=== PATIENT | female | born 1945 | race Two or more races ===

== ENCOUNTER 2018-12-26 20:01 | Inpatient (IN) | payer MEDICARE, OTHER ==
[~2018-12-26] VITALS: Ht 165.1 cm; Wt 118.8 kg
[2018-12-26 20:00] VITALS: BP 126/62
[2018-12-26] MEDS ORDERED: AMLO10TA7 PO (20:24)
[2018-12-26] MEDS ORDERED: LISI10TA5 PO (20:24)
[2018-12-26] MEDS ORDERED: IBUP-1955 PO (20:24)
--- NOTE | 2018-12-26 20:30 | NUR ---
MEDICALLY CLEARED BY DR BLOCK
--- NOTE | 2018-12-26 20:33 | NUR ---
DR BLOCK SPOKE WITH TED FROM PET TEAM. OK TO ADMIT TO [facility]HU UNDER VOLUNTARY BASIS.
[2018-12-26 21:30] VITALS: BP 126/62
[2018-12-26] MEDS ORDERED: DIVA500T2 PO (22:01)
[2018-12-26] MEDS ORDERED: ZONI100C6 PO (22:01)
[2018-12-26] MEDS ORDERED: FLUO-120 PO (22:01)
[2018-12-26] MEDS ORDERED: MAG HYDROX/AL HYDROX/SIMETH 30 ML LIQUID UDC PO PRN (23:00)
[2018-12-26] MEDS ORDERED: LORAZEPAM 0.5 MG TABLET PO PRN (23:00)
[2018-12-26] MEDS ORDERED: MAGNESIUM HYDROXIDE 30 ML LIQUID UDC PO PRN (23:00)
[2018-12-26] MEDS: TEMAZEPAM 7.5 MG CAPSULE PO PRN (23:28)
[2018-12-26] MEDS ORDERED: IBUPROFEN 600 MG TABLET PO PRN (23:30)
--- NOTE | 2018-12-26 23:55 | NUR ---
AT APPROX 2105 ADMITTED 73 YEAR OLD FEMALE TO [facility] ON A VOLUNTARY HOLD FOR SI. UPON INTERVIEW, PATIENT STATED THAT AFTER SHE WAS EVICTED FORM HER HOME YESTERDAY FOR FAILURE TO PAY HER RENT; AFTER THAT SHE STARTED FEELING SUICIDAL WITH PLAN TO WALK INTO TRAFFIC BUT INSTEAD SHE CALLED HER DOCTOR, DOCTOR CARDENAS. DR CARDENAS TOLD HER TO CONTACT THE CRISIS TEAM AND AFTER THAT SHE WAS TAKEN TO [facility] ER IN [place] WHERE SHE WAS EVALUATED AND MEDICALLY CLEARED FOR ADMISSION TO A MENTAL HEALTH UNIT ON A VOLUNTARY HOLD FOR SI. THEN SHE WAS TRANSPORTED TO [facility]. UPON FACE TO FACE ASSESSMENT, PATIENT PRESENTS A/O X 4. SHE IS ABLE TO AMBULATE WITH STEADY GAIT AND ABLE TO VERBALIZED FEELINGS. SHE IS NOTED WITH BRIGHT AFFECT, CALM AND PLEASANT. SHE IS COOPERATIVE WITH ADMISSION PROCESS. SHE STATED THAT SHE IS STILL HAVING PASSIVE SUICIDAL IDEATION WITH A PLAN TO RUN INTO TRAFFIC; HOWEVER, SHE STATED THAT SHE DID NOT DO IT, SHE DID NOT WANT TO DO IT AND INSTEAD SHE CALLED HER DOCTOR. PATIENT IS ABLE TO CFS. SHE ALSO STATED, "I AM FEELING THIS WAY BECAUSE I HAVE BIPOLAR AND I STOP TAKING MY MEDICATION. ONCE I TAKE MY MEDICATIONS I WILL FEEL BETTER". SHE ALSO ADDED, "I WANT TO GET BETTER". SKIN ASSESSMENT DONE, PATIENT PRESENT WITH MULTIPLE TATTOES IN ALL EXTREMITIES. SHE IS ALSO MISSING HER RIGHT BIG TOE NAIL AND LEFT SECOND TOE NAIL. PATIENT IS UNDER THE CARE OF DR. NAVA. PATIENT WAS ADVISE OF UNIT RULES. SHE IS ON Q15 MIN CHECKS FOR FIRST 24 HRS. WILL CONTINUE TO MONITOR.
[2018-12-27] MEDS: PANTOPRAZOLE SODIUM 40 MG TABLET.DR PO SCH (06:43)
[2018-12-27 06:54] LABS: GLUCOSE FASTING 123 mg/dL (70-115); VALPROIC ACID 54 ug/mL (50-100)
[2018-12-27 07:30] VITALS: BP 112/55
[2018-12-27] MEDS: AMLODIPINE 10 MG TABLET PO SCH (08:16)
[2018-12-27] MEDS: LISINOPRIL 10 MG TABLET PO SCH (08:16)
[2018-12-27] MEDS ORDERED: DIVALPROEX 500 MG TABLET.DR PO SCH (09:00)
[2018-12-27] MEDS: DIVALPROEX 250 MG TABLET.DR PO SCH ×2 (15:37→16:00)
[2018-12-27 16:00] VITALS: BP 131/59
[2018-12-27] MEDS: BENZTROPINE MESYLATE 0.5 MG TABLET PO SCH (16:00)
[2018-12-27] MEDS ORDERED: IBUPROFEN 800 MG TABLET PO PRN (17:00)
[2018-12-27] MEDS: risperiDONE 1 MG/ML UDC PO SCH (20:20)
[2018-12-27] MEDS: ATORVASTATIN 10 MG TABLET PO SCH (20:20)
[2018-12-27] MEDS ORDERED: ZONISAMIDE 100 MG CAPSULE PO SCH (21:00)
[2018-12-27 21:05] VITALS: BP 122/55
[2018-12-27] MEDS: TEMAZEPAM 7.5 MG CAPSULE PO PRN (21:59)
[2018-12-28 06:43] LABS: BASOPHILS % (AUTO) 0.5 % (0.0-2.0); EOSINOPHILS # (AUTO) 0.2 K/uL (0.0-0.7); EOSINOPHILS % (AUTO) 2.6 % (0.0-7.0); HEMATOCRIT 41.4 % (31.2-41.9); HEMOGLOBIN 13.6 g/dL (10.9-14.3); LYMPHOCYTES # (AUTO) 1.2 K/uL (20.0-40.0); LYMPHOCYTES % (AUTO) 19.4 % (20.5-51.5); MEAN CORPUSCULAR HEMOGLOBIN 29.2 uug (24.7-32.8); MEAN CORPUSCULAR HGB CONC 33 g/dL (32.3-35.6); MEAN CORPUSCULAR VOLUME 88.9 fL (75.5-95.3); MONOCYTES # (AUTO) 0.6 K/uL (2.0-10.0); MONOCYTES % (AUTO) 9.4 % (0.0-11.0); NEUTROPHILS # (AUTO) 4.4 K/uL (1.8-8.9); NEUTROPHILS % (AUTO) 68.1 % (38.5-71.5); PLATELET COUNT (AUTO) 187 K/uL (179-408); RED BLOOD CELL COUNT(AUTO) 4.66 MIL/uL (3.63-4.92); WHITE BLOOD COUNT (AUTO) 6.4 K/uL (3.8-11.8)
[2018-12-28] MEDS: PANTOPRAZOLE SODIUM 40 MG TABLET.DR PO SCH (06:43)
[2018-12-28 07:06] LABS: ALANINE AMINOTRANSFERASE 64 U/L (14-59); ALKALINE PHOSPHATASE 82 U/L (50-136); ASPARTATE AMINOTRANSFERASE 34 U/L (15-37); BILIRUBIN,TOTAL 0.4 mg/dL (0.2-1.0); CARBON DIOXIDE 29 mmol/L (21-32); CHLORIDE 107 mmol/L (98-107); GLUCOSE 116 mg/dL (74-106); MAGNESIUM 2.8 mg/dL (1.8-2.4); POTASSIUM 4.1 mmol/L (3.5-5.1); TOTAL PROTEIN, SERUM 6.7 g/dL (6.4-8.2); UREA NITROGEN, BLOOD 14 mg/dL (7-18)
[2018-12-28 07:58] VITALS: BP 119/62
[2018-12-28] MEDS: risperiDONE 1 MG/ML UDC PO SCH ×2 (08:03→20:32)
[2018-12-28] MEDS: BENZTROPINE MESYLATE 0.5 MG TABLET PO SCH ×2 (08:03→17:21)
[2018-12-28] MEDS: GLIMEPIRIDE 2 MG TABLET PO SCH (08:04)
[2018-12-28] MEDS: DIVALPROEX 250 MG TABLET.DR PO SCH ×3 (08:04→17:21)
[2018-12-28] MEDS: AMLODIPINE 10 MG TABLET PO SCH (08:05)
[2018-12-28] MEDS: LISINOPRIL 10 MG TABLET PO SCH (08:05)
[2018-12-28 08:10] LABS: THYROID STIMULATING HORMONE 6.331 mIU/mL (0.358-3.740)
[2018-12-28 16:44] VITALS: BP 100/54
--- NOTE | 2018-12-28 19:20 | NUR ---
RECEIVED PT AWAKE, ALERT AND ORIENTEDX4. PT NO SIGNS OF SI. PLEASANT WHEN APPROACH. PT WITH NO COMPLAINT OF PAIN AND IN NO DISTRESS. SAFETY AND COMFORT PROVIDED. WILL CONTINUE TO MONITOR.
[2018-12-28 20:00] VITALS: BP 129/55
[2018-12-28] MEDS: ATORVASTATIN 10 MG TABLET PO SCH (20:31)
[2018-12-28] MEDS: ACETAMINOPHEN 325 MG TABLET PO PRN (20:49)
[2018-12-29] MEDS: TEMAZEPAM 7.5 MG CAPSULE PO PRN ×2 (00:47→22:30)
[2018-12-29] MEDS: PANTOPRAZOLE SODIUM 40 MG TABLET.DR PO SCH (06:09)
--- NOTE | 2018-12-29 06:23 | NUR ---
PT SLEPT 6 HOURS. PT GIVEN RESTORIL AT 0047 H.PT SHOWS NO SIGNS OF ACUTE DISTRESS. NO SIGNS OF SI. PRESCRIBED MEDICATION GIVEN AND PT TOLERATED IT WELL. SAFETY AND COMFORT PROVIDED. ALL NEEDS ARE MET. WILL ENDORSE ACCORDINGLY TO INCOMING NURSE FOR CONTINUITY OF CARE.
[2018-12-29 07:30] VITALS: BP 119/73
[2018-12-29] MEDS: DIVALPROEX 250 MG TABLET.DR PO SCH ×3 (08:49→17:42)
[2018-12-29] MEDS: BENZTROPINE MESYLATE 0.5 MG TABLET PO SCH ×2 (08:49→17:42)
[2018-12-29] MEDS: GLIMEPIRIDE 2 MG TABLET PO SCH (08:50)
[2018-12-29] MEDS: AMLODIPINE 10 MG TABLET PO SCH (08:50)
[2018-12-29] MEDS: LISINOPRIL 10 MG TABLET PO SCH (08:50)
[2018-12-29] MEDS: risperiDONE 1 MG/ML UDC PO SCH ×2 (08:53→20:47)
[2018-12-29 15:42] VITALS: BP 132/69
--- NOTE | 2018-12-29 16:38 | NUR ---
Initial Discharge Note: Patient is a 73 year old female who is currently homeless. Patient will likely need assistance securing placement. Finance Insurance Manager will continue to meet with patient and collaborate with patient and MD on a safe and proper discharge.
[2018-12-29] MEDS: IBUPROFEN 400 MG TABLET PO PRN (17:42)
[2018-12-29 20:12] VITALS: BP 106/56
[2018-12-29] MEDS: ATORVASTATIN 10 MG TABLET PO SCH (20:49)
[2018-12-30 06:55] LABS: BASOPHILS % (AUTO) 0.5 % (0.0-2.0); EOSINOPHILS # (AUTO) 0.2 K/uL (0.0-0.7); HEMATOCRIT 43.8 % (31.2-41.9); HEMOGLOBIN 14.1 g/dL (10.9-14.3); LYMPHOCYTES # (AUTO) 2.5 K/uL (20.0-40.0); LYMPHOCYTES % (AUTO) 29.3 % (20.5-51.5); MEAN CORPUSCULAR HEMOGLOBIN 28.7 uug (24.7-32.8); MEAN CORPUSCULAR HGB CONC 32 g/dL (32.3-35.6); MEAN CORPUSCULAR VOLUME 89.3 fL (75.5-95.3); MONOCYTES # (AUTO) 0.8 K/uL (2.0-10.0); MONOCYTES % (AUTO) 8.9 % (0.0-11.0); NEUTROPHILS % (AUTO) 59.3 % (38.5-71.5); PLATELET COUNT (AUTO) 228 K/uL (179-408); WHITE BLOOD COUNT (AUTO) 8.5 K/uL (3.8-11.8)
[2018-12-30] MEDS: PANTOPRAZOLE SODIUM 40 MG TABLET.DR PO SCH (07:07)
[2018-12-30] MEDS ORDERED: Z GUARD REMEDY PASTE 57 GM TUBE TOP PRN (07:15)
[2018-12-30 07:17] LABS: ALANINE AMINOTRANSFERASE 60 U/L (14-59); ALKALINE PHOSPHATASE 88 U/L (50-136); ASPARTATE AMINOTRANSFERASE 26 U/L (15-37); BILIRUBIN,TOTAL 0.5 mg/dL (0.2-1.0); CARBON DIOXIDE 27 mmol/L (21-32); CHLORIDE 108 mmol/L (98-107); CREATININE 0.9 mg/dL (0.6-1.3); GLUCOSE 107 mg/dL (74-106); POTASSIUM 4.5 mmol/L (3.5-5.1); UREA NITROGEN, BLOOD 23 mg/dL (7-18); VALPROIC ACID 43 ug/mL (50-100)
[2018-12-30] MEDS: IBUPROFEN 400 MG TABLET PO PRN ×2 (07:28→17:36)
[2018-12-30 07:30] VITALS: BP 122/73
[2018-12-30] MEDS: GLIMEPIRIDE 2 MG TABLET PO SCH (09:10)
[2018-12-30] MEDS: DIVALPROEX 250 MG TABLET.DR PO SCH ×4 (09:10→20:29)
[2018-12-30] MEDS: risperiDONE 1 MG/ML UDC PO SCH (09:11)
[2018-12-30] MEDS: LISINOPRIL 10 MG TABLET PO SCH (09:11)
[2018-12-30] MEDS: AMLODIPINE 10 MG TABLET PO SCH (09:11)
[2018-12-30] MEDS: BENZTROPINE MESYLATE 0.5 MG TABLET PO SCH ×2 (09:11→17:36)
[2018-12-30 15:07] VITALS: BP 98/52
[2018-12-30] MEDS: risperiDONE 1 MG TABLET PO SCH (20:29)
[2018-12-30] MEDS: ATORVASTATIN 10 MG TABLET PO SCH (20:29)
[2018-12-30 20:57] VITALS: BP 102/48
[2018-12-30] MEDS ORDERED: risperiDONE 0.25 MG TABLET PO SCH (21:00)
[2018-12-30] MEDS: TEMAZEPAM 7.5 MG CAPSULE PO PRN (21:50)
[2018-12-31] MEDS: PANTOPRAZOLE SODIUM 40 MG TABLET.DR PO SCH (06:01)
[2018-12-31 07:18] VITALS: BP 107/62
[2018-12-31] MEDS: AMLODIPINE 10 MG TABLET PO SCH (08:00)
[2018-12-31] MEDS: LISINOPRIL 10 MG TABLET PO SCH (08:00)
[2018-12-31] MEDS: IBUPROFEN 400 MG TABLET PO PRN ×2 (08:00→17:36)
[2018-12-31] MEDS: BENZTROPINE MESYLATE 0.5 MG TABLET PO SCH ×2 (08:01→17:36)
[2018-12-31] MEDS: DIVALPROEX 250 MG TABLET.DR PO SCH ×4 (08:01→20:14)
[2018-12-31] MEDS: GLIMEPIRIDE 2 MG TABLET PO SCH (08:01)
[2018-12-31] MEDS: risperiDONE 0.5 MG TABLET PO SCH (08:01)
[2018-12-31] MEDS ORDERED: risperiDONE 1 MG/ML UDC PO SCH (09:00)
--- NOTE | 2018-12-31 15:48 | NUR ---
Discharge Planning note: Curriculum And Instruction Director sent referral packet to [facility] at [facility] [[address] [place] [address] ] for possible discharge plan.
[2018-12-31 16:20] VITALS: BP 116/44
[2018-12-31] MEDS: POLYVINYL ALCOHOL OPHT DROPS 15 ML BOTTLE EACHEYE SCH (18:22)
[2018-12-31 19:58] VITALS: BP 125/73
[2018-12-31] MEDS: ATORVASTATIN 10 MG TABLET PO SCH (20:14)
[2018-12-31] MEDS: risperiDONE 1 MG TABLET PO SCH (20:14)
[2018-12-31] MEDS: TEMAZEPAM 7.5 MG CAPSULE PO PRN (22:05)
[2019-01-01] MEDS: PANTOPRAZOLE SODIUM 40 MG TABLET.DR PO SCH (06:01)
[2019-01-01 07:30] VITALS: BP 104/63
[2019-01-01] MEDS: AMLODIPINE 10 MG TABLET PO SCH (08:48)
[2019-01-01] MEDS: BENZTROPINE MESYLATE 0.5 MG TABLET PO SCH ×2 (08:48→16:20)
[2019-01-01] MEDS: DIVALPROEX 250 MG TABLET.DR PO SCH ×4 (08:48→20:38)
[2019-01-01] MEDS: POLYVINYL ALCOHOL OPHT DROPS 15 ML BOTTLE EACHEYE SCH ×2 (08:48→16:20)
[2019-01-01] MEDS: risperiDONE 0.5 MG TABLET PO SCH (08:49)
[2019-01-01] MEDS: GLIMEPIRIDE 2 MG TABLET PO SCH (08:49)
[2019-01-01] MEDS: LISINOPRIL 10 MG TABLET PO SCH (08:57)
[2019-01-01] MEDS: IBUPROFEN 400 MG TABLET PO PRN (15:09)
[2019-01-01 16:10] VITALS: BP 113/50
--- NOTE | 2019-01-01 19:20 | NUR ---
RECEIVED PT ON THE RECREATION ROOM WATCHING TELEVISION. PT SHOWS NO SIGNS OF ACUTE DISTRESS. PT HAVE NO S.I. SAFETY AND COMFORT PROVIDED. WILL CONTINUE TO MONITOR.
[2019-01-01 20:11] VITALS: BP 145/69
[2019-01-01] MEDS: risperiDONE 1 MG TABLET PO SCH (20:38)
[2019-01-01] MEDS: ATORVASTATIN 10 MG TABLET PO SCH (20:38)
[2019-01-01] MEDS: TEMAZEPAM 7.5 MG CAPSULE PO PRN (22:14)
[2019-01-02] MEDS: PANTOPRAZOLE SODIUM 40 MG TABLET.DR PO SCH (06:08)
--- NOTE | 2019-01-02 06:20 | NUR ---
PT SLEPT 6 HOURS. PT SHOWS NO SIGNS OF ACUTE DISTRESS. PT COOPERATIVE WITH CARE. RESTORIL GIVEN AT 2214. PT TOLERATED IT WELL. SAFETY AND COMFORT PROVIDED. ALL NEEDS ARE MET. WILL ENDORSE ACCORDINGLY TO INCOMING NURSE FOR CONTINUITY OF CARE.
[2019-01-02 07:30] VITALS: BP 117/68
[2019-01-02] MEDS: IBUPROFEN 400 MG TABLET PO PRN (07:47)
[2019-01-02] MEDS: AMLODIPINE 10 MG TABLET PO SCH (08:18)
[2019-01-02] MEDS: GLIMEPIRIDE 2 MG TABLET PO SCH (08:18)
[2019-01-02] MEDS: DIVALPROEX 250 MG TABLET.DR PO SCH ×4 (08:18→20:29)
[2019-01-02] MEDS: POLYVINYL ALCOHOL OPHT DROPS 15 ML BOTTLE EACHEYE SCH ×2 (08:19→16:35)
[2019-01-02] MEDS: risperiDONE 0.5 MG TABLET PO SCH (08:19)
[2019-01-02] MEDS: LISINOPRIL 10 MG TABLET PO SCH (08:19)
[2019-01-02] MEDS: BENZTROPINE MESYLATE 0.5 MG TABLET PO SCH ×2 (08:19→17:19)
[2019-01-02] MEDS: ACETAMINOPHEN 325 MG TABLET PO PRN (10:22)
[2019-01-02 16:00] VITALS: BP 107/54
--- NOTE | 2019-01-02 17:41 | NUR ---
Gps/Circulator- Encouraged using front wheel walker for safety. refused to eat at this time till pain on her shoulders subsided per pt. Addendum: 01/02/19 at 1804 by HEBERT WEIR LVN Error ,charted on a wrong patient
--- NOTE | 2019-01-02 18:05 | NUR ---
Error, charted on a wrong patient Addendum: 01/02/19 at 1805 by HEBERT WEIR LVN Error charted on a wrong patient
[2019-01-02 20:10] VITALS: BP 125/75
[2019-01-02] MEDS: ATORVASTATIN 10 MG TABLET PO SCH (20:29)
[2019-01-02] MEDS: risperiDONE 1 MG TABLET PO SCH (20:29)
[2019-01-02] MEDS: TEMAZEPAM 7.5 MG CAPSULE PO PRN (21:26)
[2019-01-03] MEDS: PANTOPRAZOLE SODIUM 40 MG TABLET.DR PO SCH (06:08)
[2019-01-03] MEDS: IBUPROFEN 400 MG TABLET PO PRN ×2 (06:25→16:21)
[2019-01-03 07:30] VITALS: BP 119/62
[2019-01-03] MEDS: POLYVINYL ALCOHOL OPHT DROPS 15 ML BOTTLE EACHEYE SCH ×2 (08:38→16:21)
[2019-01-03] MEDS: GLIMEPIRIDE 2 MG TABLET PO SCH (08:38)
[2019-01-03] MEDS: LISINOPRIL 10 MG TABLET PO SCH (08:38)
[2019-01-03] MEDS: BENZTROPINE MESYLATE 0.5 MG TABLET PO SCH ×2 (08:38→16:21)
[2019-01-03] MEDS: DIVALPROEX 250 MG TABLET.DR PO SCH ×4 (08:38→20:46)
[2019-01-03] MEDS: AMLODIPINE 10 MG TABLET PO SCH (08:40)
[2019-01-03] MEDS: risperiDONE 0.5 MG TABLET PO SCH (08:42)
--- NOTE | 2019-01-03 13:05 | NUR ---
Gps/Toe Laster- Pleasant affect, making her needs known to staff, claimed looking forward to be dc'd soon to [facility] per patient.
[2019-01-03 16:00] VITALS: BP 96/54
--- NOTE | 2019-01-03 19:32 | NUR ---
Received patient awake at TV room watching a movie and interacting with other patients appropriately. Pleasant upon approach, cooperative and compliant with medications. No complaints at the moment. Will continue to monitor.
[2019-01-03] MEDS: ATORVASTATIN 10 MG TABLET PO SCH (20:46)
[2019-01-03] MEDS: risperiDONE 1 MG TABLET PO SCH (20:47)
[2019-01-03 20:51] VITALS: BP 113/67
[2019-01-03] MEDS: TEMAZEPAM 7.5 MG CAPSULE PO PRN (21:54)
[2019-01-04] MEDS: IBUPROFEN 400 MG TABLET PO PRN ×2 (05:45→13:09)
[2019-01-04] MEDS: PANTOPRAZOLE SODIUM 40 MG TABLET.DR PO SCH (06:01)
[2019-01-04 07:30] VITALS: BP 114/41
[2019-01-04] MEDS: LISINOPRIL 10 MG TABLET PO SCH (08:36)
[2019-01-04] MEDS: BENZTROPINE MESYLATE 0.5 MG TABLET PO SCH ×2 (08:36→17:10)
[2019-01-04] MEDS: POLYVINYL ALCOHOL OPHT DROPS 15 ML BOTTLE EACHEYE SCH ×2 (08:36→17:10)
[2019-01-04] MEDS: AMLODIPINE 10 MG TABLET PO SCH (08:37)
[2019-01-04] MEDS: risperiDONE 0.5 MG TABLET PO SCH (08:37)
[2019-01-04] MEDS: GLIMEPIRIDE 2 MG TABLET PO SCH (08:39)
[2019-01-04] MEDS: DIVALPROEX 250 MG TABLET.DR PO SCH ×4 (09:38→20:23)
[2019-01-04 15:53] VITALS: BP 124/67
[2019-01-04] MEDS: ACETAMINOPHEN 325 MG TABLET PO PRN (17:10)
--- NOTE | 2019-01-04 17:30 | NUR ---
Gps/Science Specialist- Herrera Faustin DNP was called and informed patient > pain to her knees, orders received. Informed patient orders received, but pt. refused to receive [place](i do not want any narcotics".)
--- NOTE | 2019-01-04 18:45 | NUR ---
Gps/Home Care Administrator- Per patient she had hx of alcoholism and does not was to take any narcotic, also claimed she does not want to see P.T.,Needed to informed Herrera Faustin DNP, pt. refusing to be seen by P.T., and refused Rhoda , order not entered, pt. req.
--- NOTE | 2019-01-04 19:20 | NUR ---
RECEIVED PT ON HER ROOM. PT SHOWS NO ACUTE DISTRESS. PT COMPLAINING OF HER LEGS HURTING. TOLD HER THERE'S LIDOCAINE PATCH ORDERED FOR HER. PLEASANT WHEN APPROACHED. COOPERATIVE WITH CARE. SAFETY AND COMFORT PROVIDED. WILL CONTINUE TO MONITOR.
[2019-01-04] MEDS: risperiDONE 1 MG TABLET PO SCH (20:23)
[2019-01-04] MEDS: ATORVASTATIN 10 MG TABLET PO SCH (20:23)
[2019-01-04] MEDS: LIDOCAINE 5% PATCH TD SCH ×2 (20:25)
[2019-01-04 20:45] VITALS: BP 107/54
[2019-01-04] MEDS: TEMAZEPAM 7.5 MG CAPSULE PO PRN (23:24)
[2019-01-05] MEDS: PANTOPRAZOLE SODIUM 40 MG TABLET.DR PO SCH (06:01)
--- NOTE | 2019-01-05 06:27 | NUR ---
PT SLEPT 5 HOURS. PT SHOWS NO SIGNS OF ACUTE DISTRESS. PT GIVEN 2324H RESTORIL. PT TOLERATED IT WELL. SAFETY AND COMFORT PROVIDED. WILL ENDORSE ACCORDINGLY TO INCOMING NURSE FOR CONTINUITY OF CARE.
[2019-01-05 07:30] VITALS: BP 125/44
[2019-01-05] MEDS: risperiDONE 0.5 MG TABLET PO SCH (08:41)
[2019-01-05] MEDS: BENZTROPINE MESYLATE 0.5 MG TABLET PO SCH (08:41)
[2019-01-05] MEDS: GLIMEPIRIDE 2 MG TABLET PO SCH (08:41)
[2019-01-05] MEDS: LISINOPRIL 10 MG TABLET PO SCH (08:41)
[2019-01-05] MEDS: DIVALPROEX 250 MG TABLET.DR PO SCH ×2 (08:41→13:20)
[2019-01-05 08:42] VITALS: BP 125/44
[2019-01-05] MEDS: AMLODIPINE 10 MG TABLET PO SCH (08:42)
[2019-01-05] MEDS: POLYVINYL ALCOHOL OPHT DROPS 15 ML BOTTLE EACHEYE SCH (08:42)
[2019-01-05] MEDS: IBUPROFEN 400 MG TABLET PO PRN (08:42)
[2019-01-05] MEDS: LIDOCAINE 5% PATCH TD SCH ×2 (08:44→08:45)
--- NOTE | 2019-01-05 08:58 | NUR ---
DC NOTE: Patient will be discharged to [facility] [[address] [place] [address]; ]. Please arrange an ambulance for this patient at noon. Spoke to Omar, Manager Library [ ]. Per Omar, facility is ready to accept patient today. Patient is A&Ox4. Patient is currently denying suicidal and homicidal ideation. Patient is aware and agreeable with discharge plans. Patient will follow up at the facility with Dr. Santiago (production cloth cutter) and Dr. Gtz (psychiatrist). Patient refused offer to inform her contact listed on facesheet about patients discharge plan. Patient is homeless. Patient is able to plan for self-care. Patient has completed and signed the homeless patient waiver form. Patient was provided with the homeless mcc packet, which includes a list of emergency shelters, housing resources, drop in centers, and showers/hot meals centers. This also included the Homeless Information Hotline (833)-190-9219 or 211, [employer] (068)- 968-3727, and the [facility] (019)-057-2779. A copy of resource directory was signed by patient and added to patients chart. Patient was also provided with outpatient mental health resources to [facility] Crisis Line , [facility] , and the National Suicide Prevention Lifeline
--- NOTE | 2019-01-05 14:15 | NUR ---
GPS: Nursing Notes: Discharge Notes: Patient is awake and responding to her name, cooperative with nursing care, compliant with her medications, following staff directions, denies any SI/HI, denies any AH/VH, denies any pain or discomfort, denies any SOB, discharge to [facility] at [address] [place] [id number] , report given to Tiffany, nurse supervisor chlorine liquefaction, took all her belongings with her, transported to facility via ambulance. Patient will follow up at the facility with Dr. Santiago (first helper) and Dr. Gtz (psychiatrist). Patient refused offer to inform her contact listed on facesheet about patients discharge plan. Patient is homeless. Patient is able to plan for self-care. Patient has completed and signed the homeless patient waiver form. Patient was provided with the homeless half-way packet, which includes a list of emergency shelters, housing resources, drop in centers, and showers/hot meals centers. This also included the Homeless Information Hotline (291)-448-2112 or 211, [employer] (033)- 276-1248, and the [facility] (292)-612-9784. A copy of resource directory was signed by patient and added to patients chart. Patient was also provided with outpatient mental health resources to [facility] Crisis Line , [facility] , and the National Suicide Prevention Lifeline
== END 2019-01-05 16:00 | DRG 885 ==
LOC: ER 20:04 → GPS 20:42
PROVIDERS: ADMIT Psychiatry & Neurology Psychosomatic Medicine; ATTEND Internal Medicine
DX: F31.9 Bipolar disorder, unspecified (principal); N17.0 Acute kidney failure with tubular necrosis; Z68.41 Body mass index [BMI] 40.0-44.9, adult; E44.0 Moderate protein-calorie malnutrition; D68.59 Other primary thrombophilia; F41.9 Anxiety disorder, unspecified; Z59.0 Homelessness; F43.12 Post-traumatic stress disorder, chronic; X58.XXXS Exposure to other specified factors, sequela; L60.3 Nail dystrophy; L60.8 Other nail disorders; Z96.643 Presence of artificial hip joint, bilateral; E66.01 Morbid (severe) obesity due to excess calories; E88.81 Metabolic syndrome and other insulin resistance; Z71.3 Dietary counseling and surveillance; M19.90 Unspecified osteoarthritis, unspecified site; E78.5 Hyperlipidemia, unspecified; E02 Subclinical iodine-deficiency hypothyroidism; L30.8 Other specified dermatitis; Z90.10 Acquired absence of unspecified breast and nipple; E11.9 Type 2 diabetes mellitus without complications; Z74.09 Other reduced mobility; Z91.19 Patient's noncompliance with other medical treatment and regimen; I10 Essential (primary) hypertension; J42 Unspecified chronic bronchitis
CPT/HCPCS: 36415; 80164; 83735; 84100; 84443; 85025; 97110; 97116; A4663; J3490